=== PATIENT | female | born 1985 | race Caucasian/White ===

== ENCOUNTER 2019-06-18 23:18 | Inpatient (IN) | payer BC, OTHER ==
[~2019-06-18] VITALS: Ht 167.6 cm; Wt 83.1 kg
[2019-06-18 23:20] VITALS: BP 159/124
[2019-06-18] MEDS ORDERED: KLOR-CON M2020 MEQ PO (23:27)
[2019-06-18] MEDS ORDERED: WELLBUTRIN XL150 MG PO (23:27)
[2019-06-18] MEDS ORDERED: TOPROL XL25 MG PO (23:28)
[2019-06-18] MEDS ORDERED: PERCOCET 5-3251 EACH PO (23:28)
[2019-06-18] MEDS ORDERED: ELIQUIS5 M1 PO (23:28)
[2019-06-18 23:55] LABS: ABSOLUTE NEUTROPHILS 5.3 thou/uL (1.4-8.2); BASOPHILS 0.6 % (0.0-2.0); EOSINOPHILS 0.2 % (0.0-3.0); HEMATOCRIT 46.8 % (37.0-47.0); HEMOGLOBIN 15.9 gm/dL (12.0-15.0); LYMPHOCYTES 13.1 % (24.0-44.0); MCH 33.4 pg (26.0-34.0); MCV 98.4 fL (80.0-100.0); PLATELET COUNT 240 thou/uL (150-400); POLYS 76.1 % (36.0-66.0); RBC 4.76 mil/uL (4.20-5.00); RDW 15.8 % (10.5-14.5)
[2019-06-19] VITALS (8 sets, daily range): BP systolic 125–151; BP diastolic 85–106
[2019-06-19 00:23] LABS: CALCIUM 9.5 mg/dL (8.5-10.1); POTASSIUM 3.1 mmol/L (3.5-5.1)
[2019-06-19 00:29] LABS: ALBUMIN 3.4 g/dL (3.4-5.0); TOTAL BILIRUBIN 2.3 mg/dL (<0.1-1.0); TOTAL PROTEIN 8.6 g/dL (6.4-8.2)
[2019-06-19 00:43] LABS: URINE BILIRUBIN 3+ (Negative); URINE BLOOD NEGATIVE (Negative); URINE CLARITY SL CLOUDY; URINE GLUCOSE-RANDOM* NEGATIVE (Negative); URINE KETONES TRACE (Negative); URINE LEUKOCYTES-REFLEX TRACE (Negative); URINE PROTEIN (DIPSTICK) 2+ (Negative)
[2019-06-19 00:45] LABS: URINE COLOR AMBER; URINE NITRITE-REFLEX POSITIVE (Negative)
[2019-06-19 01:08] LABS: BACTERIA-REFLEX 1-9 Few /HPF (None Seen); CASTS None Seen /LPF (None Seen); CRYSTALS None Seen /LPF (None Seen); MUCUS >6 Heavy strn/LPF (None Seen); SQUAMOUS 0-3 Few /LPF (0-3); URINE RBC 0-2 Rare /HPF (0-2); URINE WBC-REFLEX 0-5 Rare /HPF (0-5)
[2019-06-19 05:44] LABS: MAGNESIUM 1.4 mg/dL (1.8-2.4)
--- NOTE | 2019-06-19 07:28 | NUR ---
ASSUMED PT CARE AROUND 0330. PT ARRIVED FROM ED WITH C/O ABD PAIN AND ANXIETY. PT AT BEDSIDE DURING ASSESSMENT AND ADMISSION. PT GIVEN PAIN MEDICATION AND ANXIETY MEDICATION WITH PARTIAL RELIEF. PT IS RESTING IN BETWEEN CARES. HR WAS ELEVATED INTO 110'S UPON ARRIVAL TO FLOOR AND DECREASED TO HIGH 90'S-LOW 100'S. PT C/O OF NO CP AND NO SOB. PERFORMING CARES ACCORDING TO ORDERS AND MONITORING CLOSELY.
[2019-06-19 08:47] LABS: AMP/METHAMP Negative (Negative); BARBITURATES Negative (Negative); BENZODIAZEPINES Negative (Negative); COCAINE Negative (Negative); METHADONE Negative (Negative); OPIATES POSITIVE (Negative); PCP Negative (Negative)
--- NOTE | 2019-06-19 09:47 | NUR ---
Consult rec'd for ethol w/d protocal. Seal Mixing Operator visited with the pt at bedside. She is drowsy but ox4. 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 Her spouse works normal 8-5hrs and is supportive. They have supportive extended family in the area as well. She is indep and drives. She acknowledges alcohol use but denies need for treatment or resources. She denies any inpt rehab, outpt tx, AA or counseling in the past. Support and encouragement provided. Should she be interested in pursuing mental health support or ethol treatment she can ask for cm to revisit or contact her insurance plan for local providers. She has a pcp but has not seen her for a couple of years. She does have an appt scheduled for 07/03/2019. Insurance is through her spouse. She denies any dc needs or concerns. Will remain available should she be interested in resources or have dc needs.
--- NOTE | 2019-06-19 13:33 | NUR ---
CONSULTED TO PLACE A MIDLINE FOR IV ACCESS. ORDER NOTED AND VERBAL CONSENT OBTAINED. A #4F POWER MIDLINE WAS PLACED AFTER A BEDSIDE TIMEOUT WAS COMPLETED. MIDLINE WAS TRIMMED TO 15CM AND ADVANCED WITHOUT DIFFICULTY. LINE SECURED AND RELEASED FOR USE
--- NOTE | 2019-06-19 19:28 | NUR ---
PT ALERT AND ORIENTED. VSS. RECEIVED PRN PAIN MED WITH PARTIAL RELIEF. ON CIWA PROTOCAL. CONSULT CALLED IN. AT 1900 PT STATED THAT SHE WANTED TO LEAVE THE HOSPITAL AMA. INSURANCE ASSISTANT NOTIFIED. FAMILY IN THE ROOM WITH THE ONCOMING NURSE TALKING TO THE PATIENT.
--- NOTE | 2019-06-19 23:35 | NUR ---
ASSUMED PT CARE AT 1914. PT WAS AGITATED AND PACING ROOM. FAMILY WAS AT BEDSIDE AND CONCERNED ABOUT HER DEMEANOR. PT WAS REFUSING TO BE CONNECTED TO FLUIDS AND ANTIBIOTICS. PT CONCERNED ABOUT WHY SHE DID NOT HAVE SURGERY. PT WAS YELLING AT MOTHER, FATHER, AND . PT LEFT ROOM AND BEGAN PACING THE HALLWAY WANTING TO GO OUTSIDE TO SMOKE A CIGERETTE. ASKED PT IF SHE WANTED TO NURSING STAFF TO ASK FOR A NICOTINE PATCH SHE REFUSED. PT WENT BACK INTO ROOM AND THEN ALLOWED STAFF TO GET VITALS AND CONNECTED BACK TO IV. NEXT DOSE OF PAIN MEDICATION AND LORAZEPAM WAS NOT DUE UNTIL 2029. FAMILY LEFT BEDSIDE AND WAS CONCERNED ON WHETHER WE COULD SEDATE PT IF NECESSARY. ADVISED THAT SHE WOULD GET HER NEXT DOSE OF MEDICATIONS. RN WENT TO GIVE MEDS AND PT WAS RELAXED AND ASKING WHERE SHE WAS AT. PT HAS BIPOLAR AND OFF MEDICATIONS. REORIENTED PATIENT TO WHERE SHE WAS AND SITUATION. PT WAS OKAY AND CALM. PHYSICIAN CAME IN TO SEE PT AND SHE BECAME UPSET ABOUT THE DECISION TO NOT HAVE SURGERY AND CONTINUE IV ANTIBIOTICS. PT WANTED TO LEAVE AMA AT THAT TIME. SPOKE WITH BI AROUND 2144 AND WAS ADVISED TO LET PT LEAVE AMA IF SHE WANTS. WENT BACK IN AND PT DECIDED TO STAY. HOWEVER AROUND 2229 PT SAID SHE WAS NOT STAYING AND TOOK OFF TELEMETRY UNIT AND BEGAN PULLING AT IV'S. PT WAS ADAMENT ON LEAVING AMA PAPERWORK SIGNED AT 2244 AND IV'S, MIDLINE, AND TELEMETRY WERE ALL REMOVED FROM PT.
== END 2019-06-19 22:45 | disposition left against medical advice (07) | DRG 432 ==
LOC: ER 23:18 → 2N 06-19 02:43 → EROBS 06-19 02:43 → 2N 06-19 03:09
PROVIDERS: Emergency Medicine; Nurse Practitioner Family; ADMIT Hospitalist
PROC: 05HC33Z Insertion of Infusion Device into Left Basilic Vein, Percutaneous Approach (ICD-10-PCS; principal; 2019-06-19)
DX: K70.10 Alcoholic hepatitis without ascites (principal); K85.90 Acute pancreatitis without necrosis or infection, unspecified; N39.0 Urinary tract infection, site not specified; I74.9 Embolism and thrombosis of unspecified artery; K86.3 Pseudocyst of pancreas; I10 Essential (primary) hypertension; F32.9 Major depressive disorder, single episode, unspecified; F41.9 Anxiety disorder, unspecified; F17.210 Nicotine dependence, cigarettes, uncomplicated; G89.29 Other chronic pain; M54.2 Cervicalgia; F10.10 Alcohol abuse, uncomplicated; R00.0 Tachycardia, unspecified; K52.9 Noninfective gastroenteritis and colitis, unspecified; K76.0 Fatty (change of) liver, not elsewhere classified; R10.9 Unspecified abdominal pain; D73.5 Infarction of spleen; E83.42 Hypomagnesemia; E53.8 Deficiency of other specified B group vitamins; Z88.6 Allergy status to analgesic agent; Z88.8 Allergy status to other drugs, medicaments and biological substances; Z82.49 Family history of ischemic heart disease and other diseases of the circulatory system; Z71.41 Alcohol abuse counseling and surveillance of alcoholic; Z83.3 Family history of diabetes mellitus; Z82.3 Family history of stroke; Z90.49 Acquired absence of other specified parts of digestive tract; Z71.6 Tobacco abuse counseling
CPT/HCPCS: 10081; 27000

== ENCOUNTER 2019-06-20 10:24 | Inpatient (IN) | payer BC, OTHER ==
[~2019-06-20] VITALS: Ht 167.6 cm; Wt 83.0 kg
[~2019-06-20 10:24] MED LIST: ELIQUIS5 M1 PO; KLOR-CON M2020 MEQ PO; PERCOCET 5-3251 EACH PO; TOPROL XL25 MG PO; WELLBUTRIN XL150 MG PO
[2019-06-20 10:54] VITALS: BP 156/106
[2019-06-20 11:29] LABS: ABSOLUTE NEUTROPHILS 2.8 thou/uL (1.4-8.2); BASOPHILS 1.2 % (0.0-2.0); EOSINOPHILS 3.2 % (0.0-3.0); HEMATOCRIT 41.8 % (37.0-47.0); LYMPHOCYTES 24.6 % (24.0-44.0); MCH 33.3 pg (26.0-34.0); MCHC 33.6 g/dL (28.0-37.0); MCV 99.3 fL (80.0-100.0); MONOCYTES 7.8 % (1.0-8.0); POLYS 63.2 % (36.0-66.0); RBC 4.21 mil/uL (4.20-5.00); RDW 15.6 % (10.5-14.5); WBC 4.4 thou/uL (4.0-11.0)
[2019-06-20 11:34] LABS: CALCIUM 9.2 mg/dL (8.5-10.1); CREATININE 0.7 mg/dL (0.6-1.0)
[2019-06-20 11:40] LABS: TOTAL BILIRUBIN 3.4 mg/dL (<0.1-1.0); TOTAL PROTEIN 7.4 g/dL (6.4-8.2)
[2019-06-20 13:05] LABS: PLATELET COUNT 138 thou/uL (150-400)
[2019-06-20 13:23] LABS: URINE BLOOD 3+ (Negative); URINE CLARITY CLEAR; URINE COLOR ORANGE; URINE GLUCOSE-RANDOM* NEGATIVE (Negative); URINE KETONES TRACE (Negative); URINE LEUKOCYTES-REFLEX TRACE (Negative); URINE NITRITE-REFLEX NEGATIVE (Negative); URINE PROTEIN (DIPSTICK) NEGATIVE (Negative); URINE SPECIFIC GRAVITY 1.015 (1.005-1.035)
[2019-06-20 13:36] LABS: AMP/METHAMP Negative (Negative); BARBITURATES Negative (Negative); BENZODIAZEPINES Negative (Negative); COCAINE Negative (Negative); METHADONE Negative (Negative); OPIATES POSITIVE (Negative); PCP Negative (Negative)
[2019-06-20 13:38] LABS: URINE BILIRUBIN 2+ (Negative)
[2019-06-20 13:39] LABS: ICTOTEST (BILI CONFIRMATORY) Positive (Negative)
[2019-06-20 13:54] LABS: CASTS None Seen /LPF (None Seen); CRYSTALS None Seen /LPF (None Seen); SQUAMOUS 4-10 Moderate /LPF (0-3)
[2019-06-20 13:55] LABS: BACTERIA-REFLEX 1-9 Few /HPF (None Seen); URINE WBC-REFLEX 0-5 Rare /HPF (0-5)
[2019-06-20 13:56] LABS: MAGNESIUM 1.7 mg/dL (1.8-2.4); PHOSPHORUS 3.5 mg/dL (2.5-4.9)
[2019-06-20 14:19] VITALS: BP 132/94
[2019-06-20 14:35] VITALS: BP 141/79
[2019-06-20 15:00] VITALS: BP 132/109
--- NOTE | 2019-06-20 16:07 | NUR ---
NEW ADMIT FROM ER FOR ABD PAIN WITH NAUSEA AND VOMITING. LAST VOMIT THIS MORNING. A/O X4, PAIN RIGHT ABD ARE AND RADIATES UP TO SHOULDER. PAIN MANAGED WITH MEDICATIONS, CURRENT SMOKER, LUNGS CLEAR. VS STABLE, DENIES CHEST PAIN, DENIES SOB, COMPLAINT WITH CARES. HX OF BIPOLAR AND HAS NOT HAD ANY HOME MEDS IN SEVERAL DAYS DUE TO "NOT ABLE TO KEEP THEM DOWN". UP AB TAHIR, LAST BM YESTERDAY THAT SHE STATES WAS LOOSE. ADMISSION HISTORY AND ASSESMENT COMPLETED.KRISTI LIGHT IN REACH.
[2019-06-20 19:58] VITALS: BP 142/99
[2019-06-21 03:45] VITALS: BP 147/100
[2019-06-21 05:49] LABS: HEMATOCRIT 38.9 % (37.0-47.0); HEMOGLOBIN 12.9 gm/dL (12.0-15.0); MCH 33.5 pg (26.0-34.0); MCHC 33.2 g/dL (28.0-37.0); MCV 100.9 fL (80.0-100.0); RBC 3.86 mil/uL (4.20-5.00); WBC 2.5 thou/uL (4.0-11.0)
--- NOTE | 2019-06-21 05:50 | NUR ---
ASSUMED PT CARE AROUND 1920. PT WAS RESTING IN BED WITH C/O ABD PAIN. PT HAD QUESTIONS REGARDING MEDICATIONS AND DOSES. EDUCATED PATIENT REGARDING MEDICATIONS. FAMILY WAS PRESENT AT BEDSIDE AND EDUCATED WELL. PT RESTING THRU NIGHT AND PT MOTHER STAYED NIGHT. BUNDLED CARES TO PROVIDE MINIMAL INTERRUPTIONS POSSIBLE WHILE MAINTAINING PT PAIN MANAGEMENT.
[2019-06-21 06:01] LABS: ALBUMIN 2.3 g/dL (3.4-5.0); CALCIUM 8.4 mg/dL (8.5-10.1); CREATININE 0.6 mg/dL (0.6-1.0); TOTAL BILIRUBIN 2.8 mg/dL (<0.1-1.0); TOTAL PROTEIN 5.9 g/dL (6.4-8.2)
[2019-06-21 06:25] LABS: POTASSIUM 2.7 mmol/L (3.5-5.1)
[2019-06-21 08:20] VITALS: BP 129/79
--- NOTE | 2019-06-21 11:05 | NUR ---
ASSUMED CARE X4, FROM HOME, VS STABLE, ABD PAIN MANAGED WITH MEDICATIONS, UP AB TAHIR TOLERATED, LAST BM 06/20. DENIES SOB , DENIES CHEST PAIN, POTASSIUM TREATED IV MEDS ONCE IV POTASSIUM FINISHED WILL START PO POTASSIUM. DIET CHANGED TO SOFT FIBER. PATIENT STATED " SOON THIS POTASSIUM IV IS DONE, I AM LEAVING." DR CORONA NOTIFIED. MOTHER BEDSIDE. TRANSFERING TO [facility]. REPORTED OFF TO 4W RN. PATIENT NOTIFIED OF ROOM CHANGE.
[2019-06-21 12:18] VITALS: BP 141/73
--- NOTE | 2019-06-21 15:06 | NUR ---
PT ADMITTED RELATED TO ABD PAIN, NAUSEA AND VOMITING. PT HAD LEFT AMA 06/19/19. PT RETURNED COMPLAINING OF SAME SYMPTOMS. PT RESIDES IN AN APARTMENT WITH HER SPOUSE AND 3YR OLD SON. NO STEPS TO ENTER AND NO STEPS INSIDE. 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 PT STILL NOT RECEPTIVE FOR RESOURCES FOR SUBSTANCE ABUSE SERVICES. PT INDICATED SHE PLANS TO RETURN HOME ONCE MEDICALLY STABLE. CM TO FOLLOW SHOULD ANY DC NEEDS ARISE.
[2019-06-21 19:15] VITALS: BP 147/108
--- NOTE | 2019-06-21 20:08 | NUR ---
Assumed pt care this pm, transfer from , received on potassium replacement. Pt is willing to stay for the course of the treatment. Mother at the bedside, POC followed, pain is managed with medications. VS stable , endorsed to the night nurse.
--- NOTE | 2019-06-22 04:28 | NUR ---
Pt. rested quietly at intervals during the night when checked on during frequent rounds. Pain meds given (see emar) for c/o abdominal pain with some relief noted. Also, ativan given (see emar). Pt. has been up ad lani in her room. Spouse at the bedside all night. No c/o nausea.
[2019-06-22 05:04] LABS: HEMATOCRIT 40.7 % (37.0-47.0); HEMOGLOBIN 13.2 gm/dL (12.0-15.0); MCHC 32.5 g/dL (28.0-37.0); MCV 101.5 fL (80.0-100.0); RBC 4.01 mil/uL (4.20-5.00); RDW 16.3 % (10.5-14.5); WBC 2.2 thou/uL (4.0-11.0)
[2019-06-22 05:14] LABS: ALBUMIN 2.5 g/dL (3.4-5.0); CALCIUM 9.1 mg/dL (8.5-10.1); CREATININE 0.7 mg/dL (0.6-1.0); POTASSIUM 4.4 mmol/L (3.5-5.1); TOTAL BILIRUBIN 1.9 mg/dL (<0.1-1.0); TOTAL PROTEIN 6.6 g/dL (6.4-8.2)
[2019-06-22 08:06] VITALS: BP 138/90
[2019-06-22] MEDS ORDERED: NICOTINE TRANSD21 M1 TRANSDERM (14:17)
[2019-06-22] MEDS ORDERED: ZOFRAN ODT4 MG PO (14:17)
[2019-06-22] MEDS ORDERED: TRAZODONE HCL100 MG PO (14:17)
[2019-06-22] MEDS ORDERED: ACETAMINOPHEN325 M1 PO (14:17)
[2019-06-22] MEDS ORDERED: NORCO 7.5-3251 EACH PO (14:17)
[2019-06-22] MEDS ORDERED: BUPROPION XL300 MG PO (14:17)
[2019-06-22] MEDS ORDERED: BUSPIRONE HCL5 MG PO (14:17)
[2019-06-22 14:32] VITALS: BP 138/90
--- NOTE | 2019-06-22 16:31 | NUR ---
Assumed pt care pt care at 7am.Assessment completed.vss.Pt c/o abdominal pain and pain med given as ordered with relief.Later this shift,Dr Pelletier here and order noted.Pt rpeorted nausea and vomiting.Po pain med held and iv pain med and antinausea given with relief.Dr Pelletier later ordered dc order.Dc summary compile and reviewed with pt.Rx and dc summary given to pt.At 1520,saline lock dc'd prior to pt dc home with family.
== END 2019-06-22 16:51 | disposition home or self-care (01) | DRG 439 ==
LOC: ER 10:24 → 2N 14:36 → ENTRNSPT 06-21 11:17 → EDTRNSPTSTS 06-21 11:20 → 4W 06-21 11:34
PROVIDERS: Emergency Medicine; ADMIT Hospitalist
DX: K85.90 Acute pancreatitis without necrosis or infection, unspecified (principal); K86.3 Pseudocyst of pancreas; I82.890 Acute embolism and thrombosis of other specified veins; G89.29 Other chronic pain; K86.1 Other chronic pancreatitis; M54.2 Cervicalgia; I10 Essential (primary) hypertension; F41.9 Anxiety disorder, unspecified; F31.9 Bipolar disorder, unspecified; F10.10 Alcohol abuse, uncomplicated; E53.8 Deficiency of other specified B group vitamins; E87.6 Hypokalemia; F17.210 Nicotine dependence, cigarettes, uncomplicated; R00.0 Tachycardia, unspecified; K76.0 Fatty (change of) liver, not elsewhere classified; Z53.29 Procedure and treatment not carried out because of patient's decision for other reasons; R10.9 Unspecified abdominal pain; D69.6 Thrombocytopenia, unspecified; D75.9 Disease of blood and blood-forming organs, unspecified; Z90.49 Acquired absence of other specified parts of digestive tract; Z88.6 Allergy status to analgesic agent; Z88.8 Allergy status to other drugs, medicaments and biological substances; Z82.49 Family history of ischemic heart disease and other diseases of the circulatory system; Z83.3 Family history of diabetes mellitus; Z82.3 Family history of stroke
CPT/HCPCS: 10047; 10081